=== PATIENT | male | born 1950 | race Caucasian/White ===

== ENCOUNTER 2019-01-25 11:35 | Emergency (ER) | payer OTHER ==
[~2019-01-25] VITALS: Ht 160 cm; Wt 77.3 kg
[~2019-01-25 11:35] MED LIST: ACET500C5 PO; ASPI-535 PO; ATOR40TA68 PO; BENZ1LOZ4 MT; GUAI-637 PO; IBUP-1544 PO; IBUP800T48 PO; LEVO137T3 PO; OMEP20CA16 PO; TAMS-14 PO
[2019-01-25 11:47] VITALS: BP 133/63; PULSE 97; RESP 18; Ht 160 cm; Wt 77.3 kg
--- NOTE | 2019-01-25 14:23 | ERD ---
ER Documentation Chief Complaint Chief Complaint generalize body aches and fever on/off x 2 days HPI 68-year-old male presenting with generalized body aches and fever on and off for the last 2 days. Patient had a dry cough but no ear pain sore throat runny nose. He has not taken any medications today and does not have a fever today. Denies any changes in urination or bowel movement and abdominal pain. Denies medical problems. NKDA. Surgical history denies. Social history quit smoking March 2018 ROS All systems reviewed and are negative except as per history of present illness. Medications Home Meds Active Scripts Acetaminophen* (Tylophen*) 500 Mg Capsule, 1 CAP PO Q6H PRN for PAIN AND OR ELEVATED TEMP, #20 CAP Prov:RAMON ROTH PA-C 01/25/19 Ibuprofen* (Motrin*) 800 Mg Tab, 800 MG PO Q6, #30 TAB Prov:RAOMN ROTH PA-C 01/25/19 Allergies Allergies: Coded Allergies: No Known Allergy (Unverified , 01/25/19) PMhx/Soc Medical and Surgical Hx: pt denies Medical Hx, pt denies Surgical Hx History of Surgery: No Anesthesia Reaction: No Hx Neurological Disorder: No Hx Respiratory Disorders: No Hx Cardiac Disorders: No Hx Psychiatric Problems: No Hx Miscellaneous Medical Probl: Yes (high cholesterol) Hx Alcohol Use: Yes (former) Hx Substance Use: No Hx Tobacco Use: Yes Smoking Status: Former smoker FmHx Family History: No diabetes, No coronary disease, No other Physical Exam Vitals Vital Signs Date Temp Pulse Resp B/P (MAP) Pulse Ox O2 O2 Flow FiO2 Time Delivery Rate 01/25/19 98.3 97 18 133/63 98 11:47 (86) Physical Exam GENERAL: The patient is well-appearing, well-nourished, in no acute distress HEENT: Atraumatic. Conjunctivae are pink. Pupils equal, round, and reactive to light. There is no scleral icterus. Tympanic membranes clear bilaterally. Oropharynx clear. CHEST: Clear to auscultation bilaterally. There are no rales, wheezes or rhonchi. HEART: Regular rate and rhythm. No murmurs, clicks, rubs or gallops. ABDOMEN:Soft, nontender and nondistended. Good bowel sounds. No rebound or guarding. No gross peritonitis. No gross organomegaly or masses. Procedures/MDM MDM: 68-year-old male presenting with generalized viral syndrome. Patient's vitals are stable and has not taken any medications today. I have low suspicion for pneumonia. I have low suspicion for respiratory distress or hypoxia. A low suspicion for bacterial HEENT infection. I have low suspicion for meningitis or sepsis. Patient is discharged with strict ER precautions and told to follow-up with primary care within 1 to 2 days for close evaluation. Patient is told if symptoms change or worsen to return immediately to the ER. All questions answered at discharge Departure Diagnosis: Primary Impression: Viral syndrome Condition: Stable Patient Instructions: Viral Syndrome (Adult) Referrals: COMM[facility] YOU HAVE RECEIVED A MEDICAL SCREENING EXAM AND THE RESULTS INDICATE THAT YOU DO NOT HAVE A CONDITION THAT REQUIRES URGENT TREATMENT IN THE EMERGENCY DEPARTMENT. FURTHER EVALUATION AND TREATMENT OF YOUR CONDITION CAN WAIT UNTIL YOU ARE SEEN IN YOUR DOCTORS OFFICE WITHIN THE NEXT 1-2 DAYS. IT IS YOUR RESPONSIBILITY TO MAKE AN APPOINTMENT FOR FOLOW-UP CARE. IF YOU HAVE A PRIMARY DOCTOR --you should call your primary doctor and schedule an appointment IF YOU DO NOT HAVE A PRIMARY DOCTOR YOU CAN CALL OUR PHYSICIAN REFERRAL HOTLINE AT IF YOU CAN NOT AFFORD TO SEE A PHYSICIAN YOU CAN CHOSE FROM THE FOLLOWING FORMERLY [facility], [facility]–1983 CLINICS [facility] [address] [facility] [address] [facility] [facility] [address] [employer] [address] [facility] [address] [facility] [employer] [address] Additional Instructions: FOLLOW UP WITH YOUR PRIMARY CARE PHYSICIAN TOMORROW.Return to this facility if you are not improving as expected. RAMON ROTH PA-C Jan 25, 2019 14:23
== END 2019-01-25 13:08 | disposition home or self-care (01) ==
LOC: FTE 11:35
DX: B34.9 Viral infection, unspecified (principal)
CPT/HCPCS: 99282

== ENCOUNTER 2019-01-30 20:46 | Inpatient (IN) | payer OTHER ==
[~2019-01-30] VITALS: Ht 157.5 cm; Wt 78.6 kg
[2019-01-30 20:50] VITALS: Ht 157.5 cm; Wt 78.6 kg
[2019-02-10 16:00] VITALS: BP 118/63; PULSE 84; RESP 18
== END 2019-02-10 17:28 | disposition home health service (06) | DRG 853 ==
LOC: FTE 20:46 → PP2 01-31 01:59
PROVIDERS: ADMIT Internal Medicine; ATTEND Hospitalist
PROC: 0F9130Z Drainage of Right Lobe Liver with Drainage Device, Percutaneous Approach (ICD-10-PCS; principal; 2019-02-02)
PROC: 0FP030Z Removal of Drainage Device from Liver, Percutaneous Approach (ICD-10-PCS; 2019-02-08)
PROC: 02HV33Z Insertion of Infusion Device into Superior Vena Cava, Percutaneous Approach (ICD-10-PCS; 2019-02-09)
PROC: B548ZZA Ultrasonography of Superior Vena Cava, Guidance (ICD-10-PCS; 2019-02-09)
DX: A41.9 Sepsis, unspecified organism (principal); A06.4 Amebic liver abscess; E78.5 Hyperlipidemia, unspecified; N40.0 Benign prostatic hyperplasia without lower urinary tract symptoms; K80.80 Other cholelithiasis without obstruction; K57.90 Diverticulosis of intestine, part unspecified, without perforation or abscess without bleeding; E03.9 Hypothyroidism, unspecified; R73.03 Prediabetes; F17.200 Nicotine dependence, unspecified, uncomplicated; E66.9 Obesity, unspecified; Z68.31 Body mass index [BMI] 31.0-31.9, adult
CPT/HCPCS: 36589; 71045; 74150; 74177; 74182; 75989; 76705; 77012; 78226; 80048; 80053; 80061; 81003; 83036; 83605; 83735; 84100; 84145; 84484; 85025; 85610; 85730; 86280; 87045; 87070; 87075; 87086; 87177; 93005; 96374; 96375; A9537; J0744; J2175; J2250; J2270; J2543; J3010; J7030; Q9967